=== PATIENT | female | born 2000 | race Caucasian/White ===

== ENCOUNTER → 2020-07-10 | Outpatient (CLI) | payer BC ==
--- NOTE | 2020-07-10 11:40 | US ---
EXAMINATION TYPE: US pelvic complete DATE OF EXAM: 07/10/2020 COMPARISON: NONE CLINICAL HISTORY: 20-year-old female Menorrhagia with regular cycle N92.0. Heavy bleeding TECHNIQUE: Transabdominal sonographic images of the pelvis were acquired. FINDINGS: EXAM MEASUREMENTS: Uterus: 6.9 x 2.7 x 3.8 cm Endometrial Stripe: .7 cm Right Ovary: 2.3 x 1.1 x 2.9 cm Left Ovary: 2.1 x 1.4 x 1.6 cm 1. Uterus: Anteverted and otherwise wnl 2. Endometrium: wnl 3. Right Ovary: wnl 4. Left Ovary: wnl 5. Bilateral Adnexa: wnl 6. Posterior cul-de-sac: wnl IMPRESSION: Unremarkable transabdominal sonographic examination of the pelvis.
== END | disposition home or self-care (01) ==
LOC: RADUSWWP 10:27
PROVIDERS: ATTEND Internal Medicine
DX: N92.0 Excessive and frequent menstruation with regular cycle (principal)
CPT/HCPCS: 76856